=== PATIENT | female | born 1960 | race Caucasian/White ===

== ENCOUNTER 2017-09-06 14:26 | Emergency (ER) | END 2017-09-06 19:16 | disposition home or self-care (01) ==

== ENCOUNTER 2017-09-11 18:00 | Emergency (ER) | END 2017-09-11 20:01 | disposition home or self-care (01) ==

== ENCOUNTER 2017-12-06 08:34 | Emergency (ER) | END 2017-12-06 10:25 | disposition home or self-care (01) ==